=== PATIENT | male | born 1950 | race Caucasian/White ===

== ENCOUNTER 2016-05-06 09:46 | Emergency (ER) | payer OTHER ==
[~2016-05-06] VITALS: Ht 177.8 cm; Wt 118.0 kg
[~2016-05-06 09:46] MED LIST: ATOR40TA PO; AZAT50 PO; BENZ100 PO; CARV6.25 PO; CPAP MASK; ENAL10TA7 PO; FENO50TA PO; MAGN400T PO; OYST500T71 PO; PRED5 PO; SODI650T PO; TAB-TAB PO; TACR5 PO
[2016-05-06 09:49] VITALS: BP 133/89; PULSE 74; RESP 19; TEMP 98; O2SAT 95
[2016-05-06] MEDS ORDERED: FENO145T2 PO (10:00)
[2016-05-06] MEDS ORDERED: MAGN250T2 PO (10:00)
[2016-05-06] MEDS ORDERED: CHOL1TAB29 (10:00)
[2016-05-06] MEDS ORDERED: ATOR40TA16 PO (10:00)
[2016-05-06] MEDS ORDERED: SODI650T PO (10:00)
[2016-05-06] MEDS ORDERED: ENAL10TA PO (10:00)
[2016-05-06] MEDS ORDERED: MULTCAP14 (10:00)
[2016-05-06] MEDS ORDERED: TACR1 PO (10:00)
[2016-05-06] MEDS ORDERED: AZAT50 PO (10:00)
[2016-05-06] MEDS ORDERED: SODIUM CHLORIDE 0.9% FLUSH 5 ML FLUSH IVF PRN (10:00)
[2016-05-06] MEDS ORDERED: CARV25TA PO (10:00)
[2016-05-06] MEDS ORDERED: PRED5TAB PO (10:00)
[2016-05-06 10:16] LABS: AUTOMATED NEUTROPHIL # 6.3 TH/MM3 (1.8-7.7); BASOPHIL # 0.1 TH/MM3 (0-0.2); BASOPHIL % 0.7 % (0.0-2.0); EOSINOPHIL # 0.1 TH/MM3 (0-0.4); EOSINOPHIL % 1.7 % (0.0-4.0); HEMATOCRIT 43.7 % (39.0-51.0); HEMO FLAGS DIFF FINAL; LYMPH % 4.5 % (9.0-44.0); LYMPHOCYTE # 0.3 TH/MM3 (1.0-4.8); MEAN CORPUSCULAR HEMOGLOBIN 30.2 PG (27.0-34.0); MEAN CORPUSCULAR HGB CONC 33.9 % (32.0-36.0); MONO % 10.1 % (0.0-8.0); PLATELET COUNT 194 TH/MM3 (150-450); RED CELL DISTRIBUTION WIDTH 15.3 % (11.6-17.2); WHITE BLOOD COUNT 7.6 TH/MM3 (4.0-11.0)
[2016-05-06 10:32] VITALS: O2SAT 94
[2016-05-06 10:46] LABS: BICARBONATE 25.1 MEQ/L (21.0-32.0)
[2016-05-06 10:48] LABS: POTASSIUM 4.5 MEQ/L (3.5-5.1)
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
[2016-05-06] MEDS ORDERED: IODIXANOL 320 MG/ML 10 ML VIAL (for Rad CT) IV ONE (11:21)
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
[2016-05-06] MEDS ORDERED: MORPHINE SULFATE 4 MG/ML INJ IV PUSH ONE (11:30)
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
[2016-05-06 12:01] VITALS: BP 136/72; PULSE 69; RESP 16; O2SAT 98
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
--- NOTE | 2016-05-06 15:12 | EKG ---
Date Performed: 05/06/2016 Time Performed: 09:53:07 PTAGE: 66 years EKG: Sinus rhythm NORMAL ECG Compared to prior tracing no significant change PREVIOUS TRACING : 05/10/2015 15.22 DOCTOR: Mundo Shaw Interpretating Date/Time 05/06/2016 15:09:35
== END 2016-05-06 14:25 | disposition home or self-care (01) ==
LOC: NEPA 09:46
DX: R07.89 Other chest pain (principal); R51 Headache; V49.40XA Driver injured in collision with unspecified motor vehicles in traffic accident, initial encounter; Y92.414 Local residential or business street as the place of occurrence of the external cause
CPT/HCPCS: 70450; 71010; 71260; 72125; 80048; 85025; 93005; 96374; 99285; J2270; Q9967

== ENCOUNTER 2017-06-25 08:50 | Emergency (ER) | payer OTHER ==
[2017-06-25] VITALS (7 sets, daily range): BP systolic 115–189; BP diastolic 65–99; PULSE 58–75; RESP 16–20; TEMP 97.6; O2SAT 88–98
[~2017-06-25] VITALS: Ht 177.8 cm; Wt 117.0 kg
[~2017-06-25 08:50] MED LIST changes: -ATOR40TA PO; +ATOR40TA16 PO; -BENZ100 PO; +CARV25TA PO; -CARV6.25 PO; +CHOL1TAB29; -CPAP MASK; +ENAL10TA PO; -ENAL10TA7 PO; +FENO145T2 PO; -FENO50TA PO; +MAGN250T2 PO; -MAGN400T PO; +MULTCAP14; -OYST500T71 PO; -PRED5 PO; +PRED5TAB PO; -TAB-TAB PO; +TACR1 PO; -TACR5 PO
[2017-06-25] MEDS ORDERED: MULT1TAB46 PO (09:19)
[2017-06-25] MEDS ORDERED: SM M250T P-ARTICULR (09:19)
[2017-06-25] MEDS ORDERED: CHOL100025 CHEW (09:19)
[2017-06-25] MEDS ORDERED: SODI650T PO (09:19)
--- NOTE | 2017-06-25 10:00 | PD ---
HPI Chief Complaint: Numbness/Tingling Time Seen by Provider: 09:49 Travel History International Travel<30 days: No Contact w/Intl Traveler<30days: No Traveled to known affect area: No History of Present Illness HPI This 67-year-old male says that last night he came home from work and went to eat and was unable to use his hands. Both of his hands are very weak. He also had a pins and needles sensation in the hands just prior to to the moment he noted that they were weak. He had been okay at work. This has not happened to him before. He is not having headache or neck pain. He does have a history of renal failure and has had a kidney transplant. There is been no recent change in his medication. PFSH Past Medical History Arthritis: Yes (LEFT KNEE) Asthma: No Autoimmune Disease: No Blood Disorders: No Anxiety: No Depression: No Heart Rhythm Problems: Yes Cancer: Yes (PROSTATE) Cardiac Catheterization: Yes Cardiovascular Problems: Yes (TRICUSPID VALVE MALFORMED, HTN) High Cholesterol: Yes Chemotherapy: No Chest Pain: No Congestive Heart Failure: No COPD: No Cerebrovascular Accident: No Diabetes: No Dialysis: Yes (PERITONEAL) Diminished Hearing: No Endocrine: No GERD: No Glaucoma: No Genitourinary: Yes Headaches: No Hepatitis: No Hiatal Hernia: Yes Hypertension: Yes Immune Disorder: No Implanted Vascular Access Dvce: Yes Kidney Stones: No Musculoskeletal: No Neurologic: No Psychiatric: No Reproductive: No Respiratory: Yes Migraines: No Myocardial Infarction: No Radiation Therapy: Yes (SEEDING FOR PROSTATE CA) Renal Failure: Yes Seizures: No Sickle Cell Disease: No Sleep Apnea: Yes (CPAP) Thyroid Disease: No Ulcer: No Tetanus Vaccination: Unknown Past Surgical History Abdominal Surgery: Yes (APPENDIX REMOVED) AICD: No Appendectomy: Yes Arteriovenous Shunt: No Body Medical Devices: SCREWS LEFT KNEEE Cholecystectomy: Yes Ear Surgery: No Endocrine Surgery: No Eye Surgery: No Genitourinary Surgery: Yes (RIGHT KIDNEY TRANSPLANT) Gynecologic Surgery: No Insulin Pump: No Joint Replacement: Yes (BILATERAL KNEES) Pacemaker: No Thoracic Surgery: No Other Surgery: Yes (LEFT CLAF HEMATOMA) Social History Alcohol Use: No Tobacco Use: No Substance Use: No Allergies-Medications (Allergen,Severity, Reaction): Coded Allergies: No Known Allergies (Unverified Adverse Reaction, Unknown, 06/25/17) Reported Meds & Prescriptions Reported Meds & Active Scripts Active Reported Multi Vitamin Daily (Multiple Vitamin) 1 Tab Tab 1 Tab PO DAILY Sm Magnesium (Magnesium) 250 Mg Tab 1 Tab P-ARTICULR DAILY Vitamin D3 (Cholecalciferol) 1,000 Unit Chew 1,000 Units CHEW DAILY Sodium Bicarbonate 650 Mg Tab 650 Mg PO BIDPC Sodium Bicarbonate 650 Mg Tab 650 Mg PO BIDPC Prednisone 5 Mg Tab 5 Mg PO DAILY Fenofibrate 145 Mg Tab 134 Mg PO DAILY Enalapril (Enalapril Maleate) 10 Mg Tab 10 Mg PO DAILY Carvedilol 25 Mg Tab 25 Mg PO BID Azathioprine 50 Mg Tab 50 Mg PO DAILY Hazardous agent use appropriate precautions for handling and disposal. Atorvastatin (Atorvastatin Calcium) 40 Mg Tab 40 Mg PO HS Review of Systems Except as stated in HPI: all other systems reviewed are Neg General / Constitutional: No: Fever, Chills Eyes: No: Diploplia, Blurred Vision HENT: No: Headaches, Vertigo Cardiovascular: No: Chest Pain or Discomfort, Palpitations Respiratory: No: Cough Gastrointestinal: No: Vomiting Genitourinary: No: Urgency, Frequency Musculoskeletal: Positive: Weakness, No: Myalgias Skin: No Rash, No Itching Neurologic: Positive: Weakness Physical Exam Narrative GENERAL: Well-developed male SKIN: Focused skin assessment warm/dry. HEAD: Atraumatic. Normocephalic. EYES: Pupils equal and round. No scleral icterus. No injection or drainage. ENT: No nasal bleeding or discharge. Mucous membranes pink and moist. NECK: Trachea midline. No JVD. CARDIOVASCULAR: Regular rate and rhythm. No murmur appreciated. RESPIRATORY: No accessory muscle use. Clear to auscultation. Breath sounds equal bilaterally. GASTROINTESTINAL: Abdomen soft, non-tender, nondistended. Hepatic and splenic margins not palpable. MUSCULOSKELETAL: No obvious deformities. No clubbing. No cyanosis. No edema. NEUROLOGICAL: Awake and alert. No obvious cranial nerve deficits. Patient has good strength in the proximal arms. There is normal strength in the elbows and wrists both hands are weak. He is unable to make a director bioinformatics with either hand. Sensation is diminished in both hands more prominently on the radial side. It is somewhat swollen and he is unable to close his fist completely due to swelling. There is no warmth or erythema. One test in the individual fingers she does appear to have strength in flexion of each finger. He is able to abduct and adduct the second finger PSYCHIATRIC: Appropriate mood and affect; insight and judgment normal. Data Data Last Documented VS Vital Signs Date Time Temp Pulse Resp B/P (MAP) Pulse Ox O2 Delivery O2 Flow Rate FiO2 06/25/17 12:20 65 16 162/90 (114) 95 Room Air 06/25/17 08:54 97.6 Orders Orders Complete Blood Count With Diff (06/25/17 09:52) Comprehensive Metabolic Panel (06/25/17 09:52) Prothrombin Time / Inr (Pt) (06/25/17 09:52) Act Partial Throm Time (Ptt) (06/25/17 09:52) Mri Brain W/O Contrast (06/25/17 09:52) Mri C Spine W/O Contrast (06/25/17 09:52) Hydromorphone Pf Inj (Dilaudid Pf Inj) (06/25/17 13:15) Ondansetron Inj (Zofran Inj) (06/25/17 13:15) Prednisone (Deltasone) (06/25/17 13:15) Vitamin B12 (06/25/17 13:03) [place] Screen (06/25/17 13:03) Rheumatoid Screen/Titer (Rf) (06/25/17 13:03) Westergren Sedimentation Rate (06/25/17 13:03) Magnesium (Mg) (06/25/17 13:03) Labs Laboratory Tests Test 06/25/17 10:10 White Blood Count 4.7 TH/MM3 Red Blood Count 5.10 MIL/MM3 Hemoglobin 14.1 GM/DL Hematocrit 43.1 % Mean Corpuscular Volume 84.5 FL Mean Corpuscular Hemoglobin 27.6 PG Mean Corpuscular Hemoglobin Concent 32.7 % Red Cell Distribution Width 14.8 % Platelet Count 204 TH/MM3 Mean Platelet Volume 8.6 FL Neutrophils (%) (Auto) 75.1 % Lymphocytes (%) (Auto) 10.9 % Monocytes (%) (Auto) 8.8 % Eosinophils (%) (Auto) 4.6 % Basophils (%) (Auto) 0.6 % Neutrophils # (Auto) 3.6 TH/MM3 Lymphocytes # (Auto) 0.5 TH/MM3 Monocytes # (Auto) 0.4 TH/MM3 Eosinophils # (Auto) 0.2 TH/MM3 Basophils # (Auto) 0.0 TH/MM3 CBC Comment DIFF FINAL Differential Comment Prothrombin Time 10.7 SEC Prothromb Time International Ratio 1.1 RATIO Activated Partial Thromboplast Time 26.3 SEC Blood Urea Nitrogen 14 MG/DL Creatinine 1.30 MG/DL Random Glucose 107 MG/DL Total Protein 6.2 GM/DL Albumin 3.0 GM/DL Calcium Level 8.2 MG/DL Alkaline Phosphatase 102 U/L Aspartate Amino Transf (AST/SGOT) 15 U/L Alanine Aminotransferase (ALT/SGPT) 21 U/L Total Bilirubin 0.5 MG/DL Sodium Level 142 MEQ/L Potassium Level 4.0 MEQ/L Chloride Level 114 MEQ/L Carbon Dioxide Level 22.7 MEQ/L Anion Gap 5 MEQ/L Estimat Glomerular Filtration Rate 55 ML/MIN [facility] Medical Decision Making Medical Screen Exam Complete: Yes Emergency Medical Condition: Yes Medical Record Reviewed: Yes Differential Diagnosis Differential includes arthritic pain, neuropathy, radiculopathy, spinal cord abnormality, CVA Narrative Course MRI of the neck and the brain are both negative. His lab work is unremarkable. He is complaining of significant pain and will be given pain medication. He will be given a course of steroids. I have spoken with for Navdeep will also request we do [place] rheumatoid factor and sed rate which have been ordered. I will prescribe some pain medication for home use to use for the next 2 days. I will recommend that he hold his atorvastatin Diagnosis Primary Impression: Bilateral hand pain Referrals: Mundo Benedict MD Scripts Oxycodone-Acetaminophen (Percocet) 10-325 mg Tab 1 TAB PO Q4H Y for PAIN, #10 TAB 0 Refills Prov: Cisco Cisneros MD 06/25/17 Prednisone (Prednisone) 20 Mg Tab 20 MG PO DIRECTED for Inflammation, #11 TAB 0 Refills 40 MG twice a day x 3 days, then 20 MG daily x 3 days, then 10 MG daily x 3 days Prov: Cisco Cisneros MD 06/25/17 Disposition: 01 DISCHARGE HOME Condition: Stable Cisco Cisneros MD Jun 25, 2017 10:00
[2017-06-25 10:20] LABS: AUTOMATED NEUTROPHIL # 3.6 TH/MM3 (1.8-7.7); BASOPHIL % 0.6 % (0.0-2.0); EOSINOPHIL # 0.2 TH/MM3 (0-0.4); EOSINOPHIL % 4.6 % (0.0-4.0); HEMATOCRIT 43.1 % (39.0-51.0); HEMOGLOBIN 14.1 GM/DL (13.0-17.0); LYMPH % 10.9 % (9.0-44.0); LYMPHOCYTE # 0.5 TH/MM3 (1.0-4.8); MEAN CELL VOLUME 84.5 FL (80.0-100.0); MEAN CORPUSCULAR HEMOGLOBIN 27.6 PG (27.0-34.0); MEAN CORPUSCULAR HGB CONC 32.7 % (32.0-36.0); MEAN PLATELET VOLUME 8.6 FL (7.0-11.0); MONO % 8.8 % (0.0-8.0); MONOCYTE # 0.4 TH/MM3 (0-0.9); NEUT % 75.1 % (16.0-70.0); PLATELET COUNT 204 TH/MM3 (150-450); RED CELL DISTRIBUTION WIDTH 14.8 % (11.6-17.2); WHITE BLOOD COUNT 4.7 TH/MM3 (4.0-11.0)
[2017-06-25 10:33] LABS: CHLORIDE 114 MEQ/L (98-107); SODIUM (NA) 142 MEQ/L (136-145)
[2017-06-25 10:36] LABS: CALCIUM 8.2 MG/DL (8.5-10.1)
[2017-06-25 10:37] LABS: BICARBONATE 22.7 MEQ/L (21.0-32.0); BLOOD UREA NITROGEN 14 MG/DL (7-18); GLUCOSE,RANDOM 107 MG/DL (74-106); INTERNATIONAL NORMALIZED RATIO 1.1 RATIO; PROTHROMBIN TIME - PATIENT 10.7 SEC (9.8-11.6)
[2017-06-25 10:40] LABS: ALT (GPT) 21 U/L (12-78); AST (GOT) 15 U/L (15-37); GLOMERULAR FILTRATION RATE 55 ML/MIN (>89)
[2017-06-25 10:41] LABS: TOTAL BILIRUBIN ADULT 0.5 MG/DL (0.2-1.0); TOTAL PROTEIN 6.2 GM/DL (6.4-8.2)
[2017-06-25 10:42] LABS: ALKALINE PHOSPHATASE 102 U/L (45-117)
--- NOTE | 2017-06-25 12:36 | RADRPT ---
EXAM DATE/TIME: 06/25/2017 11:52 [facility] COMPARISON: CT BRAIN W/O CONTRAST, May 06, 2016, 11:13. INDICATIONS : Bilateral hand tingling. Unable to make a fist. MEDICAL HISTORY : Renal insufficiency. SURGICAL HISTORY : Appendectomy. Tonsillectomy. ACL repair. Kidney transplant. ENCOUNTER: Initial ACUITY: 1 day PAIN SCORE: 0/10 LOCATION: head. TECHNIQUE: Multiplanar, multisequence MRI of the brain was performed without contrast. FINDINGS: CEREBRUM: The ventricles are normal for age. No evidence of midline shift, mass lesion, hemorrhage or acute in farction. No extraaxial fluid collections are seen. The pituitary gland and suprasellar cistern are normal in configuration. WHITE MATTER: On the flair images there are multiple punctate areas of increased signal temperature is thick of chr onic small vessel ischemic change. POSTERIOR FOSSA: The cerebellum and brainstem are intact. The 4th ventricle is midline. The cerebellopontine angle is unremarkable. The cerebellar tonsils are normal in position. DIFFUSION IMAGING: No focal areas of restricted diffusion are seen. No evidence of acute infarction. EXTRACRANIAL: The visualized portions of the orbits and paranasal sinuses are unremarkable. CONCLUSION: 1. No acute infarction or hemorrhage. 2. Atrophy and chronic small vessel ischemic change. Hiram Childers MD on June 25, 2017 at 12:33 Board Certified Radiologist. This report was verified electronically.
--- NOTE | 2017-06-25 12:38 | RADRPT ---
EXAM DATE/TIME: 06/25/2017 11:52 [place] COMPARISON: No previous studies available for comparison. INDICATIONS : Spinal stenosis. Bilateral hand tingling. Unable to make a fist. MEDICAL HISTORY : Renal insufficiency. SURGICAL HISTORY : Appendectomy. Tonsillectomy. ACL repair. Kidney transplant. ENCOUNTER: Initial ACUITY: 1 day PAIN SCORE: 0/10 LOCATION: neck. TECHNIQUE: Multiplanar, multisequence MRI examination of the cervical spine was performed. FINDINGS: VERTEBRAE: Normal vertebral body height. Homogeneous marrow signal. ALIGNMENT: No evidence of subluxation. CORD: Normal configuration and signal. POST FOSSA: The cerebellar tonsils are normal in position. C2-C3: The thecal sac has a normal configuration. There is no evidence of disc herniation or spinal canal s tenosis. The neural foramina are patent bilaterally. C3-C4: The thecal sac is mildly flattened. There is no evidence of disc herniation or spinal canal stenosis . The neural foramina are patent bilaterally. C4-C5: The thecal sac is slightly flattened. Broad-based diffuse annular bulge. There is no evidence of dis c herniation or spinal canal stenosis. The neural foramina are patent bilaterally. C5-C6: The thecal sac has a normal configuration. There is no evidence of disc herniation or spinal canal s tenosis. The neural foramina are patent bilaterally. C6-C7: The thecal sac has a normal configuration. There is no evidence of disc herniation or spinal canal s tenosis. The neural foramina are patent bilaterally. C7-T1: The thecal sac has a normal configuration. There is no evidence of disc herniation or spinal canal s tenosis. The neural foramina are patent bilaterally. CONCLUSION: Minimal disc bulges at the C4-5 and C5-6. No cord edema or significant disc pathology noted. Gadiel Mcclure MD on June 25, 2017 at 12:34 Board Certified Radiologist. This report was verified electronically.
[2017-06-25] MEDS ORDERED: PRED20 PO (13:12)
[2017-06-25] MEDS ORDERED: PERC10TA27 PO (13:12)
[2017-06-25] MEDS ORDERED: predniSONE 20 MG TAB PO ONE (13:15)
[2017-06-25] MEDS ORDERED: HYDROmorphone HCL PF 2 MG/ML VIAL IV PUSH ONE (13:15)
[2017-06-25] MEDS ORDERED: ONDANSETRON HCL 4 MG/2 ML VIAL IV PUSH ONE (13:15)
[2017-06-25 13:57] LABS: MAGNESIUM 1.8 MG/DL (1.5-2.5)
[2017-06-25 22:29] LABS: RHEUMATOID FACTOR SCREEN NEGATIVE (NEGATIVE)
== END 2017-06-25 15:44 | disposition home or self-care (01) ==
LOC: PHED 08:50
DX: M79.641 Pain in right hand (principal); M79.642 Pain in left hand; E78.00 Pure hypercholesterolemia, unspecified; Z79.899 Other long term (current) drug therapy
CPT/HCPCS: 70551; 72141; 80053; 82607; 83735; 85025; 85610; 85652; 85730; 86038; 86430; 96374; 96375; 99285; J1170; J2405; J7512